=== PATIENT | male | born 1985 | race Caucasian/White ===

== ENCOUNTER 2016-08-13 18:15 | Emergency (ER) | payer BC ==
[2016-08-13 18:20] VITALS: BP 150/98
--- NOTE | 2016-08-13 18:38 | UC ---
Eye Complaint HPI - HPI Summary HPI Summary: RIGHT LOWER EYELID STYE FOR FOUR WEEKS. GETTING WORSE. NO PAIN WITH EYE MOVEMENT . NO CHANGE IN VISION. NO REDNESS OR DISCHARGE FROM EYE. NO TRAUMA. STYE KEEPS RETURNING. - History of Current Complaint Chief Complaint: UCEye Stated Complaint: EYE COMPLAINT Time Seen by Provider: 08/13/16 18:16 Hx Obtained From: Patient Onset/Duration: Gradual Onset, Lasting Weeks, Still Present Timing: Weeks Severity Initially: Mild Severity Currently: Moderate Location of Injury: Eye Lid (lower) - RIGHT Character: Dull Aggravating Factor(s): Nothing Alleviating Factor(s): Nothing Associated Signs And Symptoms: Negative: Drainage (Clear), Vision Impairment Right, Vision Impairment Left, Fever, Swelling - Risk Factors Penetrating Injury Risk Factor: Negative Acute Glaucoma Risk Factors: Negative Optic Artery Occlusion Risk Factors: Negative - Allergies/Home Medications Allergies/Adverse Reactions: Allergies Allergy/AdvReac Type Severity Reaction Status Date / Time Amoxicillin Allergy Severe Rash Verified 08/13/16 18:20 Home Medications: Home Medications Bupropion XL* [Wellbutrin XL *] 300 mg PO DAILY 08/13/16 [History Confirmed ] Ibuprofen TAB* [Advil TAB*] 800 mg PO PRN 08/13/16 [History] PMH/Surg Hx/FS Hx/Imm Hx Previously Healthy: Yes - Surgical History Surgical History: None - Family History Known Family History: Positive: Other - father - IVDA Negative: Cardiac Disease, Hypertension, Diabetes - Social History Occupation: Employed Full-time Lives: With Family Alcohol Use: None 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 Substance Use Type: None Substance Use Comment - Amount & Last Used: pt reports 5 months sober Smoking Status (MU): Current Every Day Smoker Type: Cigarettes Amount Used/How Often: 1/2 ppd Length of Time of Smoking/Using Tobacco: 4-5 years Review of Systems Constitutional: Negative Skin: Negative Eyes: Other - STYE RIGHT INFERIOR LID ENT: Negative Respiratory: Negative Cardiovascular: Negative Gastrointestinal: Negative Genitourinary: Negative Motor: Negative Neurovascular: Negative Musculoskeletal: Negative Neurological: Negative Psychological: Negative All Other Systems Reviewed And Are Negative: Yes Physical Exam Triage Information Reviewed: Yes Appearance: Well-Appearing, No Pain Distress, Well-Nourished Vital Signs: Initial Vital Signs Temp 98.7 F 08/13/16 18:17 Pulse 86 08/13/16 18:17 Resp 16 08/13/16 18:17 BP 150/98 08/13/16 18:17 Pulse Ox 100 08/13/16 18:17 Eye Exam: Normal Eyes: Positive: Other: - STYE RIGHT INFERIOR LID ENT Exam: Normal Dental Exam: Normal Neck exam: Normal Neck: Positive: Supple, Nontender, No Lymphadenopathy Respiratory Exam: Normal Respiratory: Positive: Chest non-tender, Lungs clear, Normal breath sounds, No respiratory distress, No accessory muscle use Cardiovascular Exam: Normal Cardiovascular: Positive: RRR, No Murmur, Pulses Normal Abdominal Exam: Normal Musculoskeletal Exam: Normal Musculoskeletal: Positive: Strength Intact, ROM Intact Neurological Exam: Normal Psychological Exam: Normal Skin Exam: Normal Eye Complaint Course/Dx - Differential Dx/Diagnosis Differential Diagnosis/HQI/PQRI: Conjunctivitis, Corneal Abrasion, Foreign Body , Periorbital Cellulitis Provider Diagnoses: STYE RIGHT INFERIOR LID Discharge - Discharge Plan Condition: Stable Disposition: HOME Prescriptions: Clindamycin Cap(NF) [Cleocin 300 mg Cap(NF)] 300 mg PO TID #30 cap Patient Education Materials: Stye (ED) Referrals: [facility] [place] [facility]IAN REFERRAL [Outside] Silverio Benoit MD [Medical Doctor] - Additional Instructions: PRIMARY CARE: There are four major types of clinical preventive care: immunizations, screening , behavioral counseling (sometimes referred to as lifestyle changes), and chemoprevention. All four apply throughout the life span. It is important to establish and to have access to a Primary Care Physician, not only for follow- up regrding acute and chronic problems, but also for preventative care. PLEASE FOLLOW UP WITH EYE DOCTOR IF SYMPTOMS CONTINUE OR IF CONDITION WORSENS Images Head: 1 - STYE RIGHT INFERIOR LID
== END 2016-08-13 18:38 | disposition home or self-care (01) ==
LOC: UCEAST 18:15
DX: H00.012 Hordeolum externum right lower eyelid (principal); Z72.0 Tobacco use; F10.21 Alcohol dependence, in remission
CPT/HCPCS: 99212; G0463

== ENCOUNTER 2016-11-19 09:40 | Emergency (ER) | payer BC ==
[2016-11-19 10:09] VITALS: BP 134/88
--- NOTE | 2016-11-19 10:46 | UC ---
Respiratory Complaint HPI - HPI Summary HPI Summary: Cough SOB, Wheeze, Fevers Chills for a few days - History of Current Complaint Chief Complaint: UCRespiratory Stated Complaint: URI Time Seen by Provider: 11/19/16 10:39 Hx Obtained From: Patient Onset/Duration: Gradual Onset, Lasting Days, Still Present Timing: Constant Severity Initially: Moderate Severity Currently: Moderate Pain Intensity: 3 Pain Scale Used: 0-10 Numeric - 3 Character: Cough: Productive Aggravating Factors: Exertion, Recumbent Position Alleviating Factors: Nothing Associated Signs And Symptoms: Positive: Fever, Chills, Pleuritic Chest Pain, Wheezing, URI - Allergies/Home Medications Allergies/Adverse Reactions: Allergies Allergy/AdvReac Type Severity Reaction Status Date / Time Amoxicillin Allergy Severe Rash Verified 11/19/16 10:04 PMH/Surg Hx/FS Hx/Imm Hx Previously Healthy: No Psychological History: Depression - Surgical History Surgical History: None - Family History Known Family History: Positive: Other - father - IVDA Negative: Cardiac Disease, Hypertension, Diabetes - Social History Occupation: Employed Full-time Lives: With Family Alcohol Use: None 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/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 Substance Use Type: None Substance Use Comment - Amount & Last Used: pt reports 1 1/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 Smoking Status (MU): Light Every Day Tobacco Smoker Type: Cigarettes Amount Used/How Often: 1/2 ppd Length of Time of Smoking/Using Tobacco: 4-5 years Have You Smoked in the Last Year: No Review of Systems Constitutional: Fever, Chills Skin: Negative Eyes: Negative ENT: Negative Respiratory: Negative, Cough Cardiovascular: Negative Gastrointestinal: Negative Genitourinary: Negative Motor: Negative Neurovascular: Negative Musculoskeletal: Negative Neurological: Negative Psychological: Negative Is Patient Immunocompromised?: No All Other Systems Reviewed And Are Negative: Yes Physical Exam Triage Information Reviewed: Yes Appearance: No Pain Distress, Ill-Appearing - mild, Obese Vital Signs: Initial Vital Signs Temp 98.0 F 11/19/16 10:04 Pulse 86 11/19/16 10:04 Resp 18 11/19/16 10:04 BP 134/88 11/19/16 10:04 Pulse Ox 99 11/19/16 10:04 Vital Signs Reviewed: Yes Eye Exam: Normal Eyes: Positive: Conjunctiva Clear ENT Exam: Normal ENT: Positive: Normal ENT inspection, Hearing grossly normal, Pharynx normal, TMs normal. Negative: Nasal congestion, Nasal drainage, Tonsillar swelling, Tonsillar exudate, Trismus, Muffled/hoarse voice Dental Exam: Normal Neck exam: Normal Neck: Positive: Supple, Nontender, No Lymphadenopathy Respiratory Exam: Normal Respiratory: Positive: Chest non-tender, No respiratory distress, No accessory muscle use, Wheezing, Expiration Cardiovascular Exam: Normal Cardiovascular: Positive: RRR, No Murmur, Pulses Normal, Brisk Capillary Refill Musculoskeletal Exam: Normal Musculoskeletal: Positive: Strength Intact, ROM Intact Neurological Exam: Normal Neurological: Positive: Alert, Muscle Tone Normal Psychological Exam: Normal Skin Exam: Normal UC Diagnostic Evaluation - Laboratory O2 Sat by Pulse Oximetry: 99 Respiratory Course/Dx - Course Course Of Treatment: increase fluids, robitussin, zithromax, albuterol, follow with pcp prn, nicotine cesasation information - Differential Dx/Diagnosis Differential Diagnosis/HQI/PQRI: Asthma, Bronchitis, Lower Resp Infection, Sinusitis Provider Diagnoses: Nicotine dependent, Bronchitis Discharge - Discharge Plan Condition: Stable Disposition: HOME Prescriptions: Albuterol HFA INHALER* [Ventolin HFA Inhaler*] 2 puff INH Q4H PRN #1 mdi PRN Reason: Cough/wheeze Azithromycin TAB* [Zithromax TAB (Z-JENN) 250 mg #6 tabs] 2 tab PO .TODAY, THEN 1 DAILY #1 jenn Patient Education Materials: How to Stop Smoking (ED), How to Use a Metered- Dose Inhaler (ED), Acute Bronchitis (ED), Bronchospasm (ED) Referrals: [facility] [place] [facility]IAN REFERRAL [Outside] - 2 Weeks
== END 2016-11-19 11:16 | disposition home or self-care (01) ==
LOC: UCEAST 09:40
DX: J40 Bronchitis, not specified as acute or chronic (principal); Z88.3 Allergy status to other anti-infective agents; F32.9 Major depressive disorder, single episode, unspecified; F17.210 Nicotine dependence, cigarettes, uncomplicated; E66.9 Obesity, unspecified
CPT/HCPCS: 99212; G0463

== ENCOUNTER 2017-12-15 11:59 | Emergency (ER) | payer BC ==
[2017-12-15 12:37] VITALS: BP 127/82
--- NOTE | 2017-12-15 13:11 | UC ---
Respiratory Complaint HPI - HPI Summary HPI Summary: 2 DAYS OF COUGH, CONGESTION, SORE THROAT AND WHEEZE. NO FEVER, NAUSEA/ VOMITING. PATIENT IS A SMOKER. STATES HE HAS A DEVIATED SEPTUM AND HAS HAD DIFFICULTY BREATHING THROUGH ONE SIDE OF HIS NOSE SINCE CHILDHOOD. HAD SURGERY RECOMMENDED BY ENT YEARS AGO BUT NEVER FOLLOWED UP. - History of Current Complaint Chief Complaint: UCRespiratory Stated Complaint: RESP COMPLAINT Time Seen by Provider: 12/15/17 12:41 Hx Obtained From: Patient Onset/Duration: Gradual Onset, Lasting Days, Still Present Timing: Constant Severity Initially: Moderate Severity Currently: Moderate Pain Intensity: 2 Pain Scale Used: 0-10 Numeric Character: Cough: Productive Aggravating Factors: Nothing Alleviating Factors: Nothing Associated Signs And Symptoms: Positive: Wheezing, URI, Nasal Congestion - Allergies/Home Medications Allergies/Adverse Reactions: Allergies Allergy/AdvReac Type Severity Reaction Status Date / Time amoxicillin Allergy Rash Verified 12/15/17 12:38 PMH/Surg Hx/FS Hx/Imm Hx Respiratory History: Asthma - Surgical History Surgical History: None - Family History Known Family History: Positive: Other - father - IVDA Negative: Cardiac Disease, Hypertension, Diabetes - Social History Alcohol Use: None 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/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 Substance Use Type: None Substance Use Comment - Amount & Last Used: pt reports 1 1/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 Smoking Status (MU): Light Every Day Tobacco Smoker Type: Cigarettes Amount Used/How Often: 1/2 ppd Length of Time of Smoking/Using Tobacco: 4-5 years Have You Smoked in the Last Year: No Review of Systems Constitutional: Negative ENT: Sore Throat, Nasal Discharge Respiratory: Shortness Of Breath, Cough, Other - WHEEZE Cardiovascular: Negative Gastrointestinal: Negative All Other Systems Reviewed And Are Negative: Yes Physical Exam Triage Information Reviewed: Yes Appearance: Well-Appearing, No Pain Distress, Well-Nourished Vital Signs: Initial Vital Signs Temp 98.4 F 12/15/17 12:35 Pulse 79 12/15/17 12:35 Resp 18 12/15/17 12:35 BP 127/82 12/15/17 12:35 Pulse Ox 100 12/15/17 12:35 Vital Signs Reviewed: Yes Eyes: Positive: Conjunctiva Clear ENT: Positive: Hearing grossly normal, Pharynx normal, TMs normal Neck: Positive: Supple, Nontender, No Lymphadenopathy Respiratory: Positive: No respiratory distress, No accessory muscle use, Decreased breath sounds, Wheezing - DIFFUSE Cardiovascular Exam: Normal Abdomen Description: Positive: Soft Musculoskeletal: Positive: No Edema Neurological: Positive: Alert Psychological: Positive: Age Appropriate Behavior Skin: Negative: rashes UC Diagnostic Evaluation - Laboratory O2 Sat by Pulse Oximetry: 100 Respiratory Course/Dx - Differential Dx/Diagnosis Provider Diagnoses: ACUTE BRONCHITIS Discharge - Sign-Out/Discharge Documenting (check all that apply): Patient Departure All imaging exams completed and their final reports reviewed: No Studies - Discharge Plan Condition: Stable Disposition: HOME Prescriptions: Albuterol HFA INHALER* [Ventolin HFA Inhaler*] 2 puff INH Q4H PRN #1 mdi PRN Reason: Shortness Of Breath Azithromycin 500 mg PO DAILY #5 tab predniSONE TAB* [Deltasone TAB*] 50 mg PO DAILY #5 tab Patient Education Materials: Acute Bronchitis (ED), Bronchospasm (ED) Referrals: No Primary Care Phys,NOPCP [Primary Care Provider] - Additional Instructions: YOUR SYMPTOMS MAY BE VIRALLY MEDIATED BUT GIVEN YOUR PRESENTATION ALONG WITH YOUR H/O SMOKING WE WILL COVER YOU WITH ANTIBIOTICS. IF YOU START THE MEDICINE BE SURE TO TAKE IT FOR THE FULL COURSE. REST, HYDRATE, OTC MEDS NEEDED. WILL ALSO TREAT WITH PREDNISONE AND ALBUTEROL TO HELP WITH AIRWAY INFLAMMATION. SEEK FOLLOW-UP WITH YOUR PCP IF YOU ARE NOT IMPROVING OVER THE NEXT 1-2 WEEKS. CONSIDER ENT EVAL FOR YOUR DEVIATED SEPTUM. QUIT SMOKING!! [facility] IN [place] JARROD S[address]OVAL AND [address] [facility] [phone] CALL THE NUMBER BELOW FOR ASSISTANCE IN ESTABLISHING WITH A PCP An additional resource available to assist in finding the appropriate physician for your health care needs is the [facility] ([facility]). You may contact them by calling [phone]. - Billing Disposition and Condition Condition: STABLE Disposition: Home
== END 2017-12-15 13:14 | disposition home or self-care (01) ==
LOC: UCEAST 11:59
DX: J20.9 Acute bronchitis, unspecified (principal); Z88.0 Allergy status to penicillin; F17.210 Nicotine dependence, cigarettes, uncomplicated
CPT/HCPCS: 99212; G0463

== ENCOUNTER 2018-11-17 09:55 | Emergency (ER) | payer BC ==
[2018-11-17 10:16] VITALS: BP 130/87
[2018-11-17] MEDS ORDERED: Albuterol/Ipratropium NEB.SOL* Albuterol 2.5 MG/Ipratropium 0.5 MG 3 ML INH ONE ×2 (10:26→11:10)
--- NOTE | 2018-11-17 10:30 | UC ---
Respiratory Complaint HPI - HPI Summary HPI Summary: 33-year-old male presents with complaints of fever, general malaise, fatigue, chest congestion, shortness of breath, and a nonproductive cough 2 days. Max temperature of 101 F. States chest "green" with coughing or deep breath. Reports he was assisting a neighbor who was diagnosed with pneumonia 4 days ago. Has history of reactive airway disease with URIs and has been prescribed an albuterol inhaler however currently does not have one. Denies nasal congestion, runny nose, sore throat, ear pain, chest pain, palpitations, diaphoresis, abdominal pain, nausea, or vomiting. - History of Current Complaint Chief Complaint: UCRespiratory Stated Complaint: CONGESTION,COUGH,FEVER,ACHY Time Seen by Provider: 11/17/18 10:19 Hx Obtained From: Patient Pain Intensity: 3 - Allergies/Home Medications Allergies/Adverse Reactions: Allergies Allergy/AdvReac Type Severity Reaction Status Date / Time amoxicillin Allergy Rash Verified 11/17/18 10:16 Home Medications: Home Medications Buprenorphine HCl/Naloxone HCl [Buprenor-Nalox 12-3 mg Sl Film] 1 tab PO DAILY 11/17/18 [History Confirmed 11/17/18] Fluticasone NASAL SPRAY 50MCG* [Flonase NASAL SPRAY 50MCG*] 2 spray BOTH NARES DAILY 11/17/18 [History Confirmed 11/17/18] Gabapentin 600 mg PO TID PRN 11/17/18 [History Confirmed 11/17/18] Nicotine PATCH 21 MG/24 HR* 21 mg TRANSDERM DAILY 11/17/18 [History Confirmed ] cloNIDine TAB* [Catapres 0.1 MG TAB*] 0.1 mg PO TID PRN 11/17/18 [History Confirmed 11/17/18] traZODone TAB* [Desyrel TAB*] 100 mg PO BEDTIME 11/17/18 [History Confirmed 05/03] PMH/Surg Hx/FS Hx/Imm Hx Previously Healthy: Yes Respiratory History: Other - RAD - Surgical History Surgical History: None - Family History Known Family History: Positive: Other - father - IVDA Negative: Cardiac Disease, Hypertension, Diabetes - Social History Occupation: Unemployed Lives: With Family Alcohol Use: None Alcohol Amount: Reports 6 mos sober Substance Use Type: Other - Opioids Substance Use Comment - Amount & Last Used: Reports 6 months sober Smoking Status (MU): Light Every Day Tobacco Smoker Type: Cigarettes Amount Used/How Often: 1/2 ppd Length of Time of Smoking/Using Tobacco: 4-5 years Have You Smoked in the Last Year: No Review of Systems All Other Systems Reviewed And Are Negative: Yes Constitutional: Positive: Fever, Chills, Fatigue Skin: Negative: Rash Eyes: Negative: Drainage, Eye Redness ENT: Positive: Nasal Discharge, Sinus Congestion. Negative: Sore Throat, Ear Ache, Sinus Pain/Tenderness Respiratory: Positive: Shortness Of Breath, Cough, Other - Wheezing Cardiovascular: Negative: Palpitations, Chest Pain Gastrointestinal: Negative: Abdominal Pain, Vomiting, Nausea Genitourinary: Positive: Negative Musculoskeletal: Positive: Negative Neurological: Positive: Negative Is Patient Immunocompromised?: No Physical Exam - Summary Physical Exam Summary: GENERAL APPEARANCE: Well developed, well nourished, alert and cooperative, and appears to be in no acute distress. EYES: Conjunctiva clear. No drainage. EARS: External auditory canals and tympanic membranes clear, hearing grossly intact. NOSE: Mild nasal congestion. No nasal discharge. THROAT: Pharynx normal. No tonsilar inflammation, swelling, exudate, or lesions. Uvula midline. NECK: Neck supple, non-tender without lymphadenopathy. CARDIAC: Normal S1 and S2. No S3, S4 or murmurs. Rhythm is regular. There is no peripheral edema, cyanosis or pallor. Extremities are warm and well perfused. Capillary refill is less than 2 seconds. Peripheral pulses intact. LUNGS: Diffuse bilateral wheezing with decreased breath sounds. ABDOMEN: Positive bowel sounds. Soft, nondistended, nontender. No guarding or rebound. No masses or hepatosplenomegally. MUSKULOSKELETAL: ROM intact to all extremities. No joint erythema or tenderness. Normal muscular development. Normal gait. SKIN: Skin normal color, texture and turgor with no lesions or eruptions. Triage Information Reviewed: Yes Vital Signs: Initial Vital Signs Temp 98.4 F 11/17/18 10:12 Pulse 94 11/17/18 10:12 Resp 20 11/17/18 10:12 BP 130/87 11/17/18 10:12 Pulse Ox 95 11/17/18 10:12 Vital Signs Reviewed: Yes Diagnostics - Radiology No standard instances Radiology Interpretation Completed By: Radiologist Summary of Radiographic Findings: Order Information: CHEST PA LAT 2 VWS. HISTORY: fever, sob, wheezing. COMPARISONS: March 21, 2012. VIEWS: 4: Frontal dual-energy and lateral views of the chest. FINDINGS: CARDIOMEDIASTINAL SILHOUETTE: The cardiomediastinal silhouette is normal. MIKAELA : The mikaela are normal. PLEURA: The costophrenic angles are sharp. No pleural abnormalities are noted. LUNG PARENCHYMA: The lungs are clear. ABDOMEN: The upper abdomen is clear. There is no subphrenic gas. BONES AND SOFT TISSUES: No bone or soft tissue abnormalities are noted. OTHER: None. IMPRESSION: NO ACTIVE CARDIOPULMONARY DISEASE. Re-Evaluation - Re-Evaluation First Eval Re-Evaluation Time: 11:11 Comment: Patient reports some improvement in breathing after nebulizer treatment. Continues to have diffuse bilateral wheezing. Reviewed x-ray report with patient. Discussed his symptoms are likely a viral bronchitis with RAD. Will give additional neb treatment and prednisone at this time. Second Eval Re-Evaluation Time: 11:50 Change: Improved Comment: Patient states breathing is easier. Continues to have bilateral diffuse wheezing but much improved air exchange. Respiratory Course/Dx - Course Course Of Treatment: 33-year-old male presents with complaints of fever, general malaise, fatigue, chest congestion, shortness of breath, and a nonproductive cough 2 days. Max temperature of 101 F. States chest "green" with coughing or deep breath. Reports he was assisting a neighbor who was diagnosed with pneumonia 4 days ago. Has history of reactive airway disease with URIs and has been prescribed an albuterol inhaler however currently does not have one. Denies nasal congestion, runny nose, sore throat, ear pain, chest pain, palpitations, diaphoresis, abdominal pain, nausea, or vomiting. Afebrile. Vital signs stable. Patient had some mild nasal congestion, diffuse bilateral wheezes, decreased breath sounds, a bronchospastic nonproductive cough, and otherwise unremarkable exam. Patient was given a DuoNeb nebulizer. Posttreatment patient states breathing was a little easier however he continued to have diffuse bilateral wheezes. Chest x-ray showed no acute cardiopulmonary pathology. Results were reviewed with the patient. Because of the continued wheezing patient was given a second DuoNeb nebulizer treatment as well as prednisone 60 mg PO. After second nebulizer treatment patient stated breathing was better. Continued to have diffuse bilateral wheezes but much improved air exchange. Will treat symptomatically for a viral bronchitis with RAD. Patient prescribed prednisone 50 mg daily x 4 days starting tomorrow, albuterol inhaler 2 puffs every 4-6 hours as needed, and Tessalon Perles 1 cap every 8 hours as needed for cough. He states he is a patient at the [facility] and was encouraged to call today to schedule a follow up appointment in 3-5 days or to return here is unable to schedule for a recheck of symptoms. Anticipatory guidance and warning symptoms reviewed with patient. Verbalizes understanding and agrees with POC. - Differential Dx/Diagnosis Differential Diagnosis/HQI/PQRI: Bronchitis, Lower Resp Infection, Other - RAD Provider Diagnosis: Acute bronchitis, Reactive airway disease that is not asthma Discharge ED - Sign-Out/Discharge Documenting (check all that apply): Patient Departure All imaging exams completed and their final reports reviewed: No Studies - Discharge Plan Condition: Stable Disposition: HOME Prescriptions: Albuterol HFA INHALER* [Ventolin HFA Inhaler*] 2 puff INH Q4H PRN #1 mdi PRN Reason: Shortness Of Breath Benzonatate CAP* [Tessalon 100 MG CAP*] 100 mg PO TID PRN #21 cap PRN Reason: Cough predniSONE TAB* [Deltasone TAB*] 50 mg PO DAILY #4 tab Patient Education Materials: Acute Bronchitis (ED), Wheezing (ED) Referrals: No Primary Care Phys,NOPCP [Primary Care Provider] - [facility] [Provider Group] - 3 Days (Call today for appointment.) Additional Instructions: Your history and exam are consistent with acute bronchitis with reactive airway disease (wheezing) which is most often caused by a viral infection. Viral infections do not respond to antibiotics and are limited to the treatment of symptoms. Viral infections typically run their course in 7-10 days. Take prednisone 50 mg daily x 4 days starting tomorrow to help with the inflammation of the airways. You were given a dose of this in the clinic today. Use albuterol inhaler 2 puffs every 4-6 hours as needed for shortness of breath. Get plenty of rest. Drink plenty of fluids. Run a cool mist humidifer in your room at night. Take over the counter acetaminophen (Tylenol) or ibuprofen (Advil, Motrin) according to directions as needed for pain or fever. Take Tessalon Perles 1 cap every 8 hours as needed for cough. Return here or follow up with your primary care provider in 3-5 days recheck especially if symptoms do not improve. Seek immediate medical attention in the emergency room if you have a persistent fever greater than 100.5 F despite taking acetaminophen or ibuprofen, have severe chest pain, increased difficulty breathing, or have any worsening of symptoms. - Billing Disposition and Condition Condition: STABLE Disposition: Home
[2018-11-17] MEDS ORDERED: predniSONE TAB* 20 MG PO ONE (11:10)
== END 2018-11-17 12:05 | disposition home or self-care (01) ==
LOC: UCCORT 09:55
DX: J20.9 Acute bronchitis, unspecified (principal); J98.8 Other specified respiratory disorders; F17.210 Nicotine dependence, cigarettes, uncomplicated; Z88.0 Allergy status to penicillin
CPT/HCPCS: 71046; 99212; A9270-GY; G0463; J7512